=== PATIENT | male | born 1950 | race Caucasian/White ===

== ENCOUNTER 2022-01-14 04:17 | Day surgery (SDC) | payer OTHER, MEDICARE ==
[2022-01-13 10:33] VITALS: BMI 36.0
[2022-01-14] MEDS ORDERED: HEPARIN NA (PORCINE) 5,000 UNITS/ML 1ML VIAL ONE ×2 (07:34→11:16)
[2022-01-14] MEDS ORDERED: LIDOCAINE HCL 1%, 10 MG/ML (20ML VIAL) ONE (07:34)
[2022-01-14] MEDS ORDERED: ceFAZolin SODIUM 1 GM VIAL IVPB ONE (08:58)
[2022-01-14] MEDS ORDERED: LIDOCAINE HCL 1%, 10 MG/ML (20ML VIAL) NR ONE ×3 (08:58→09:43)
[2022-01-14] MEDS ORDERED: HEPARIN NA (PORCINE) 5,000 UNITS/ML 1ML VIAL SQ ONE ×2 (08:59→09:45)
[2022-01-14] MEDS ORDERED: CLINDAMYCIN 600MG PREMIX IVPB 600 MG/50 ML BAG IVPB ONE (09:31)
[2022-01-14] MEDS ORDERED: MIDAZOLAM HCL 2 MG/2 ML SINGLE DOSE VIAL ONE ×2 (09:31→10:08)
[2022-01-14] MEDS ORDERED: CLINDAMYCIN 600MG PREMIX IVPB 1,200 MG/100 ML BAG IVPB ONE (09:32)
[2022-01-14] MEDS ORDERED: CLINDAMYCIN 600 MG PREMIX BAG IVPB ONE (09:33)
[2022-01-14] MEDS ORDERED: CLOPIDOGREL BISULFATE 75 MG TABLET (FP) PO ONE (10:45)
[2022-01-14] MEDS ORDERED: PROMETHAZINE HCL 25 MG/1 ML VIAL IVPUSH PRN (10:48)
[2022-01-14] MEDS ORDERED: ONDANSETRON 4 MG/2 ML VIAL IVPUSH PRN (10:48)
[2022-01-14] MEDS ORDERED: oxyCODONE HCL 5 MG TABLET PO PRN (10:48)
[2022-01-14] MEDS ORDERED: CLOPIDOGREL BISULFATE 75 MG TABLET (FP) ONE (10:57)
[2022-01-14 12:07] VITALS: TEMP 97.3
[2022-01-14 13:22] VITALS: RESP 20
[2022-01-14 13:26] VITALS: BP 112/67; PULSE 65
== END 2022-01-14 13:25 | disposition home or self-care (01) ==
LOC: JASU-SURG 04:17
PROVIDERS: ATTEND Surgery Vascular Surgery
PROC: 047Q3ZZ Dilation of Left Anterior Tibial Artery, Percutaneous Approach (ICD-10-PCS; 2022-01-14)
PROC: 047N3D1 Dilation of Left Popliteal Artery with Intraluminal Device, using Drug-Coated Balloon, Percutaneous Approach (ICD-10-PCS; principal; 2022-01-14 10:30)
DX: I70.212 Atherosclerosis of native arteries of extremities with intermittent claudication, left leg (principal); E11.9 Type 2 diabetes mellitus without complications; I10 Essential (primary) hypertension
CPT/HCPCS: 37226; 37228; C1877; C1885; 76000-TC-FY; 94760; J1644

== ENCOUNTER 2022-02-13 14:37 | Emergency (ER) | payer OTHER, MEDICARE ==
[2022-02-13 14:49] VITALS: BP 118/60; PULSE 71; RESP 18; TEMP 97; BMI 31.3
== END 2022-02-13 17:33 | disposition home or self-care (01) ==
LOC: JERFT 14:37
DX: S69.91XA Unspecified injury of right wrist, hand and finger(s), initial encounter (principal); W23.0XXA Caught, crushed, jammed, or pinched between moving objects, initial encounter
CPT/HCPCS: 73140-TC-RT-FY; 99283-25